=== PATIENT | female | born 1990 | race American Indian/Alaskan Native ===

== ENCOUNTER 2018-04-01 22:23 | Emergency (ER) | payer SELFPAY ==
[2018-04-01] MEDS ORDERED: Sodium Chloride 0.9% 1,000 ML IV STA (23:24)
[2018-04-01 23:46] LABS: BASO # 0.04 K/mm3 (0.0-2.0); BASO % 0.4 % (0.0-3.0); EOS # 0.1 (0.0-0.7); EOS % 1.4 % (1.5-5.0); GRAN # 6.35 (1.4-6.5); GRAN % 70.5 % (50.0-68.0); HEMOGLOBIN 12.9 g/dL (12.0-16.0); LYMPH % 21.8 % (22.0-35.0); MEAN CELL VOLUME 91.8 fl (80.0-105.0); MEAN CORPUSCULAR HEMOGLOBIN 32.1 pg (25.0-35.0); MEAN PLATELET VOLUME 10.6 fl (7.0-11.0); MONO # 0.5 (0.1-0.6); MONO % 5.9 % (1.0-6.0); RBC 4.02 10^6/uL (3.5-6.1); RED CELL DISTRIBUTION WIDTH 13.2 % (11.5-14.5)
[2018-04-01 23:53] LABS: URINE BILIRUBIN NEGATIVE (NEGATIVE); URINE BLOOD LARGE (NEGATIVE); URINE GLUCOSE (UA) NEGATIVE (NEGATIVE); URINE LEUKOCYTE ESTERASE NEGATIVE Leu/uL (NEGATIVE); URINE PROTEIN 100 mg/dL (<30 mg/dL); URINE UROBILINOGEN 0.2 E.U./dL (<1 E.U./dL)
[2018-04-01 23:55] LABS: URINE APPEARANCE BLOODY (CLEAR); URINE COLOR RED (YELLOW)
[2018-04-01 23:56] LABS: ALB/GLOB RATIO 1.5 (1.1-1.8); ALBUMIN 4.6 g/dL (3.0-4.8); CALCIUM 9.5 mg/dL (8.4-10.5); GFR AFRICAN-AMERICAN > 60; GFR NON-AFRICAN AMERICAN > 60; LIPASE 245 U/L (23-300); URINE RBC TNTC /hpf (0-2); URINE WBC NEGATIVE /hpf (0-6)
[2018-04-02 00:01] LABS: ALT/SGPT 24 U/L (7-56); AST/SGOT 30 U/L (14-36); BLOOD UREA NITROGEN 17 mg/dL (7-21)
[2018-04-02 00:06] LABS: URINE BACTERIA FEW (NEG)
[2018-04-02 00:17] VITALS: RESP 18
[2018-04-02] MEDS ORDERED: Morphine 2 mg/ml ISec IVP STA (01:16)
--- NOTE | 2018-04-02 01:27 | ED PDOC ---
Arrival/HPI - General Historian: Patient - History of Present Illness Time/Duration: Prior to Arrival Symptom Onset: Sudden Symptom Course: Worsening Quality: Cramping Severity Level: 10 <Vicenta Hendricks - Last Filed: 04/02/18 03:00> <Tommy Bee - Last Filed: 04/02/18 07:24> - General Chief Complaint: Female Genitourinary Time Seen by Provider: 04/01/18 22:48 - History of Present Illness Narrative History of Present Illness (Text): 04/02/18 01:24 28-year-old female presents today with a sudden onset of lower abdominal cramping and vaginal bleeding that started prior to arrival. Patient states that she has been having vaginal bleeding for the past 5 days and she thought it was just her period. Patient states today she developed severe lower abdominal pain which she describes as cramping/contractions. Patient states she noted heavy bleeding. Patient is unsure of her last period. Patient denies chest pain or shortness of breath she is complaining of nausea without vomiting. Denies any urinary symptoms. Complaining of low back pain she describes as an achy sensation. Patient rates the pain in the abdomen and back as a 10 out of 10. patient states she took aleve for pain without improvement. pt states she smokes marijuana and smoked it last this morning. (Vicenta Hendricks) Past Medical History - Provider Review Nursing Documentation Reviewed: Yes - Travel History Have you recently traveled outside [place] w/in the past 3 mons?: No - Tetanus Immunization Tetanus Immunization: Unknown <Vicenta Hendricks - Last Filed: 04/02/18 03:00> Family/Social History - Physician Review Nursing Documentation Reviewed: Yes Family/Social History: Unknown Family HX Smoking Status: Never Smoked Hx Alcohol Use: Yes Frequency of alcohol use: Socially Hx Substance Use: Yes (marijuana) <Vicenta Hendricks - Last Filed: 04/02/18 03:00> Allergies/Home Meds <Vicenta Hendricks - Last Filed: 04/02/18 03:00> <Tommy Bee - Last Filed: 04/02/18 07:24> Allergies/Adverse Reactions: Allergies No Known Allergies Allergy (Verified 04/01/18 23:23) Home Medications: Home Meds Medication Instructions Recorded Confirmed No Known Home Med 04/02/18 04/02/18 Review of Systems - Review of Systems Constitutional: absent: Fatigue, Fevers Respiratory: absent: SOB, Cough Cardiovascular: absent: Chest Pain, Palpitations Gastrointestinal: Abdominal Pain, Nausea. absent: Constipation, Vomiting Genitourinary Female: Vaginal Bleeding. absent: Dysuria, Frequency, Hematuria Musculoskeletal: Back Pain. absent: Arthralgias, Neck Pain Skin: absent: Rash, Pruritis Neurological: absent: Headache, Dizziness Psychiatric: absent: Anxiety, Depression <Vicenta Hendricks - Last Filed: 04/02/18 03:00> Physical Exam Vital Signs Reviewed: Yes Temperature: Afebrile Blood Pressure: Normal Pulse: Regular Respiratory Rate: Normal Appearance: Positive for: Well-Appearing, Non-Toxic, Uncomfortable Pain Distress: Mild Mental Status: Positive for: Alert and Oriented X 3 - Systems Exam Head: Present: Atraumatic Mouth: Present: Moist Mucous Membranes Neck: Present: Normal Range of Motion Respiratory/Chest: Present: Clear to Auscultation, Good Air Exchange. No: Respiratory Distress, Accessory Muscle Use Cardiovascular: Present: Regular Rate and Rhythm Abdomen: Present: Tenderness (minimal lower abd tenderness). No: Distention, Peritoneal Signs, Rebound, Guarding Back: Present: Normal Inspection. No: CVA Tenderness, Midline Tenderness, Paraspinal Tenderness Upper Extremity: Present: Normal Inspection, Normal ROM Lower Extremity: Present: Normal ROM Neurological: Present: GCS=15, Speech Normal Skin: Present: Warm, Dry, Normal Color. No: Rashes Psychiatric: Present: Alert, Oriented x 3 <Vicenta Hendricks - Last Filed: 04/02/18 03:00> Vital Signs Temp Pulse Resp BP Pulse Ox 04/02/18 07:08 60 18 114/61 100 04/02/18 04:32 60 18 115/79 100 04/02/18 03:16 62 18 126/48 L 100 04/02/18 01:46 56 L 18 123/73 100 04/02/18 00:16 60 18 133/75 100 04/01/18 23:18 97.9 F 58 L 20 133/75 100 Medical Decision Making <Vicenta Hendricks - Last Filed: 04/02/18 03:00> <Tommy Bee - Last Filed: 04/02/18 07:24> ED Course and Treatment: 04/02/18 01:28 Patient is nontoxic well appearing . c/o severe lower abdominal cramping. vital signs are stable. CBC: wnl CMP: wnl Beta hC TYPE AND SCREEN: A+ Urinalysis: + blood Ultrasound: FINDINGS: There is a gestational sac within the cervical canal. The mean sac diameter measures 2.2 cm, corresponding to a gestational age of 6 weeks 5 days. No normal-appearing yolk sac or pole is identified. Within the uterine body and fundus, the endometrium is thickened up to 1.5 cm. The right ovary measures 2.3 x 1.9 x 2.1 cm without focal lesion. The left ovary measures 2.3 x 2.4 x 2.4 cm and contains a 1.5 cm echogenic focus. Both ovaries demonstrate internal vascularity. No free fluid in the cul-de-sac. IMPRESSION: 6 weeks 5 days gestational sac within the cervical canal without normal- appearing yolk sac or pole. CUFF MAKER surgical evaluation recommended. Suspected 1.5 cm left ovarian dermoid without torsion or free fluid vaginal examination performed after US result; + bleeding noted; products of conception noted at cervical os. chaparoned by CUTTER APPRENTICE HANDNINA Rivero. Discussed all the results the patient. 04/02/18 02:22 case discussed in depth with dr. godoy; he does not want patient to be transferred; he states given patient a percocet; wait four hours repeat hgb and repeat the US in 4 hours. 04/02/18 03:00 case signed out to dr. bee pending re-evaluation and disposition. (Vicenta Hendricks) 04/02/18 07:10 Case endorsed to /pending CBC/repeat transvaginal U/S/reassess/final disposition (Tommy Bee) - Lab Interpretations Lab Results: 04/02/18 06:30 04/01/18 23:15 Lab Results 04/02/18 06:30: WBC 8.9, RBC 3.55, Hgb 11.3 L, Hct 32.2 L, MCV 90.7, MCH 31.8, MCHC 35.1, RDW 12.9, Plt Count 184, MPV 9.6 04/02/18 02:14: Blood Type Confirm A POSITIVE 04/02/18 01:07: Blood Type A POSITIVE, Antibody Screen Negative, BBK History Checked No verified bt 04/01/18 23:15: WBC 9.0, RBC 4.02, Hgb 12.9, Hct 36.9, MCV 91.8, MCH 32.1, MCHC 35.0, RDW 13.2, Plt Count 245, MPV 10.6, Gran % 70.5 H, Lymph % (Auto) 21.8 L, [place] % (Auto) 5.9, Eos % (Auto) 1.4 L, Baso % (Auto) 0.4, Gran # 6.35, Lymph # ( Auto) 2.0, [place] # (Auto) 0.5, Eos # (Auto) 0.1, Baso # (Auto) 0.04 04/01/18 23:15: Beta HCG, Quant 696.96 H 04/01/18 23:15: Sodium 142, Potassium 3.8, Chloride 102, Carbon Dioxide 26, Anion Gap 18, BUN 17, Creatinine 0.6 L, Est GFR ( Amer) > 60, Est GFR ( Non-Af Amer) > 60, Random Glucose 125 H, Calcium 9.5, Total Bilirubin 0.5, AST 30, ALT 24, Alkaline Phosphatase 45, Total Protein 7.6, Albumin 4.6, Globulin 3.0, Albumin/Globulin Ratio 1.5, Lipase 245 04/01/18 23:15: Urine Color Red, Urine Appearance Bloody, Urine pH 6.0, Ur Specific [place] 1.025, Urine Protein 100 H, Urine Glucose (UA) Negative, Urine Ketones 40 H, Urine Blood Large H, Urine Nitrate Negative, Urine Bilirubin Negative, Urine Urobilinogen 0.2, Ur Leukocyte Esterase Negative, Urine RBC Tntc , Urine WBC Negative, Ur Epithelial Cells 4 - 5, Urine Bacteria Few, Urine Other Mucus - RAD Interpretation Radiology Orders: 04/01/18 23:24 OB TRANSVAGINAL [US] Stat 04/02/18 05:26 TRANSVAGINAL [US] Stat - Medication Orders Current Medication Orders: Discontinued Medications Acetaminophen (Tylenol 325mg Tab) 975 mg PO STAT STA Stop: 04/01/18 23:25 Last Admin: 04/01/18 23:33 Dose: 975 mg MAR Pain/Vitals Document 06/26/18 23:33 RG (Rec: 04/01/18 23:33 RG [id number]) Pain Reassessment Is This A Pain ReAssessment? Yes Sleep Is patient sleeping during reassessment? No Presence of Pain Presence of Pain Yes Pain Scale Used Pain Scale Used Numeric Location Pain Location Body Site Abdomen Famotidine (Pepcid) 20 mg IVP STAT STA Stop: 04/01/18 23:39 Last Admin: 04/02/18 00:09 Dose: 20 mg IVP Administration Document 04/02/18 00:09 RG (Rec: 04/02/18 00:09 RG [id number]) Charges for Administration # of IVP Administrations 1 Sodium Chloride (Sodium Chloride 0.9%) 1,000 mls @ 999 mls/hr IV .Q1H1M STA Stop: 04/02/18 00:24 Last Admin: 04/01/18 23:35 Dose: 999 mls/hr eMAR Start Stop Document 04/01/18 23:35 RG (Rec: 04/01/18 23:[id number]) Intravenous Solution Start Date 04/01/18 Start Time 23:35 Metoclopramide HCl (Reglan) 10 mg IVP STAT STA Stop: 04/01/18 23:39 Last Admin: 04/02/18 00:08 Dose: 10 mg IVP Administration Document 04/02/18 00:08 RG (Rec: 04/02/18 00:[id number]) Charges for Administration # of IVP Administrations 1 Morphine Sulfate (Morphine) 2 mg IVP STAT STA Stop: 04/02/18 01:17 Last Admin: 04/02/18 01:34 Dose: 2 mg MAR Pain Assessment Document 04/02/18 01:34 RG (Rec: 04/02/18 01:39 [place] [id number]) Pain Reassessment Is this a pain reassessment? Yes Sleep Is patient sleeping during reassessment? No Location Upper or Lower Lower Pain Location Body Site Abdomen Description Description Cramping Pain Behavior Crying Irritability IVP Administration Document 04/02/18 01:34 RG (Rec: 04/02/18 01:[id number]) Charges for Administration # of IVP Administrations 1 Disposition/Present on Arrival - Present on Arrival Any Indicators Present on Arrival: No History of DVT/PE: No History of Uncontrolled Diabetes: No Urinary Catheter: No History of Decub. Ulcer: No History Surgical Site Infection Following: None <Vicenta Hendricks - Last Filed: 04/02/18 03:00> - Present on Arrival Any Indicators Present on Arrival: No - Disposition Have Diagnosis and Disposition been Completed?: No Disposition Time: 07:00 <Tommy Bee - Last Filed: 04/02/18 07:24> - Disposition Diagnosis: Incomplete Condition: STABLE Referrals: FAMILY PROVIDER,NO [Primary Care Provider] - Follow up with primary Forms: [employer] (Romanian)
[2018-04-02 04:33] VITALS: PULSE 60
[2018-04-02 06:47] LABS: HEMOGLOBIN 11.3 g/dL (12.0-16.0); MEAN CELL VOLUME 90.7 fl (80.0-105.0); MEAN CORPUSCULAR HEMOGLOBIN 31.8 pg (25.0-35.0); MEAN CORPUSCULAR HGB CONC 35.1 g/dl (31.0-37.0); MEAN PLATELET VOLUME 9.6 fl (7.0-11.0); RBC 3.55 10^6/uL (3.5-6.1); RED CELL DISTRIBUTION WIDTH 12.9 % (11.5-14.5); WHITE BLOOD COUNT 8.9 10^3/ul (4.5-11.0)
--- NOTE | 2018-04-02 07:48 | ED PDOC ---
Physical Exam Vital Signs Reviewed: Yes Vital Signs Temp Pulse Resp BP Pulse Ox 04/02/18 07:08 60 18 114/61 100 04/02/18 04:32 60 18 115/79 100 04/02/18 03:16 62 18 126/48 L 100 04/02/18 01:46 56 L 18 123/73 100 04/02/18 00:16 60 18 133/75 100 04/01/18 23:18 97.9 F 58 L 20 133/75 100 Temperature: Afebrile Blood Pressure: Normal Pulse: Regular Respiratory Rate: Normal Appearance: Positive for: Well-Appearing, Non-Toxic, Comfortable Pain Distress: None Mental Status: Positive for: Alert and Oriented X 3 - Systems Exam Head: Present: Atraumatic, Normocephalic Pupils: Present: PERRL Extroacular Muscles: Present: EOMI Conjunctiva: Present: Normal Mouth: Present: Moist Mucous Membranes Neck: Present: Normal Range of Motion Respiratory/Chest: Present: Clear to Auscultation, Good Air Exchange. No: Respiratory Distress, Accessory Muscle Use Cardiovascular: Present: Regular Rate and Rhythm, Normal S1, S2. No: Murmurs Abdomen: No: Tenderness, Distention, Peritoneal Signs Back: Present: Normal Inspection Upper Extremity: Present: Normal Inspection. No: Cyanosis, Edema Lower Extremity: Present: Normal Inspection. No: Edema Neurological: Present: GCS=15, CN II-XII Intact, Speech Normal Skin: Present: Warm, Dry, Normal Color. No: Rashes Psychiatric: Present: Alert, Oriented x 3, Normal Insight, Normal Concentration Medical Decision Making ED Course and Treatment: 04/02/18 07:47 Patient endorsed to me by . pending ultrasound. Reevaluate and dispo. 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 Dr. Zepeda recommended Misoprostol 200mcg x4 per vaginal q12 x1day. And to follow up in his office in 1-2 days. 04/02/18 08:42 On reevaluation patient feels better and no longer has abdominal pain and is tolerating PO fluids. Explained in detail to patient her results and she will follow up with or her CHANGE COORDINATOR in [place]. She repeated follow up instructions to me and was given amble time to ask questions. - Lab Interpretations Lab Results: 04/02/18 06:30 04/01/18 23:15 Lab Results 04/02/18 06:30: WBC 8.9, RBC 3.55, Hgb 11.3 L, Hct 32.2 L, MCV 90.7, MCH 31.8, MCHC 35.1, RDW 12.9, Plt Count 184, MPV 9.6 04/02/18 02:14: Blood Type Confirm A POSITIVE 04/02/18 01:07: Blood Type A POSITIVE, Antibody Screen Negative, BBK History Checked No verified bt 04/01/18 23:15: WBC 9.0, RBC 4.02, Hgb 12.9, Hct 36.9, MCV 91.8, MCH 32.1, MCHC 35.0, RDW 13.2, Plt Count 245, MPV 10.6, Gran % 70.5 H, Lymph % (Auto) 21.8 L, [place] % (Auto) 5.9, Eos % (Auto) 1.4 L, Baso % (Auto) 0.4, Gran # 6.35, Lymph # ( Auto) 2.0, [place] # (Auto) 0.5, Eos # (Auto) 0.1, Baso # (Auto) 0.04 04/01/18 23:15: Beta HCG, Quant 696.96 H 04/01/18 23:15: Sodium 142, Potassium 3.8, Chloride 102, Carbon Dioxide 26, Anion Gap 18, BUN 17, Creatinine 0.6 L, Est GFR ( Amer) > 60, Est GFR ( Non-Af Amer) > 60, Random Glucose 125 H, Calcium 9.5, Total Bilirubin 0.5, AST 30, ALT 24, Alkaline Phosphatase 45, Total Protein 7.6, Albumin 4.6, Globulin 3.0, Albumin/Globulin Ratio 1.5, Lipase 245 04/01/18 23:15: Urine Color Red, Urine Appearance Bloody, Urine pH 6.0, Ur Specific [place] 1.025, Urine Protein 100 H, Urine Glucose (UA) Negative, Urine Ketones 40 H, Urine Blood Large H, Urine Nitrate Negative, Urine Bilirubin Negative, Urine Urobilinogen 0.2, Ur Leukocyte Esterase Negative, Urine RBC Tntc , Urine WBC Negative, Ur Epithelial Cells 4 - 5, Urine Bacteria Few, Urine Other Mucus - RAD Interpretation Radiology Orders: 04/01/18 23:24 OB TRANSVAGINAL [US] Stat 04/02/18 05:26 TRANSVAGINAL [US] Stat - Medication Orders Current Medication Orders: Discontinued Medications Acetaminophen (Tylenol 325mg Tab) 975 mg PO STAT STA Stop: 04/01/18 23:25 Last Admin: 04/01/18 23:33 Dose: 975 mg MAR Pain/Vitals Document 04/01/18 23:33 RG (Rec: 04/01/18 23:33 [id number] Pain Reassessment Is This A Pain ReAssessment? Yes Sleep Is patient sleeping during reassessment? No Presence of Pain Presence of Pain Yes Pain Scale Used Pain Scale Used Numeric Location Pain Location Body Site Abdomen Famotidine (Pepcid) 20 mg IVP STAT STA Stop: 04/01/18 23:39 Last Admin: 04/02/18 00:09 Dose: 20 mg IVP Administration Document 04/02/18 00:09 RG (Rec: 04/02/18 00:09 [id number]) Charges for Administration # of IVP Administrations 1 Sodium Chloride (Sodium Chloride 0.9%) 1,000 mls @ 999 mls/hr IV .Q1H1M STA Stop: 04/02/18 00:24 Last Admin: 04/01/18 23:35 Dose: 999 mls/hr eMAR Start Stop Document 04/01/18 23:35 RG (Rec: 04/01/18 23:42 [id number]) Intravenous Solution Start Date 04/01/18 Start Time 23:35 Metoclopramide HCl (Reglan) 10 mg IVP STAT STA Stop: 04/01/18 23:39 Last Admin: 04/02/18 00:08 Dose: 10 mg IVP Administration Document 04/02/18 00:08 RG (Rec: 04/02/18 00:08 [id number]) Charges for Administration # of IVP Administrations 1 Morphine Sulfate (Morphine) 2 mg IVP STAT STA Stop: 04/02/18 01:17 Last Admin: 04/02/18 01:34 Dose: 2 mg MAR Pain Assessment Document 04/02/18 01:34 RG (Rec: 04/02/18 01:39 RG [id number]) Pain Reassessment Is this a pain reassessment? Yes Sleep Is patient sleeping during reassessment? No Location Upper or Lower Lower Pain Location Body Site Abdomen Description Description Cramping Pain Behavior Crying Irritability IVP Administration Document 04/02/18 01:34 RG (Rec: 04/02/18 01:39 RG [id number]) Charges for Administration # of IVP Administrations 1 - Scribe Statement The provider has reviewed the documentation as recorded by the Scribe Grgeorio Jamil Provider Scribe Attestation: All medical record entries made by the Scribe were at my direction and personally dictated by me. I have reviewed the chart and agree that the record accurately reflects my personal performance of the history, physical exam, medical decision making, and the department course for this patient. I have also personally directed, reviewed, and agree with the discharge instructions and disposition. Disposition/Present on Arrival - Present on Arrival Any Indicators Present on Arrival: No History of DVT/PE: No History of Uncontrolled Diabetes: No Urinary Catheter: No History of Decub. Ulcer: No History Surgical Site Infection Following: None - Disposition Have Diagnosis and Disposition been Completed?: Yes Diagnosis: Incomplete Disposition: HOME/ ROUTINE Disposition Time: 08:48 Patient Plan: Discharge Condition: STABLE Discharge Instructions (ExitCare): Miscarriage Additional Instructions: KARLOS GORMAN, thank you for letting us take care of you today. Your provider was Cresencio Brady DO and you were treated for Incomplete . The emergency medical care you received today was directed at your acute symptoms. If you were prescribed any medication, please fill it and take as directed. It may take several days for your symptoms to resolve. Return to the Emergency Department if your symptoms worsen, do not improve, or if you have any other problems. Make sure to follow up with OBGYN Dr. Zepeda in 1-2days or if you prefer you OBGYN as you mention [facility]. Return if you symptoms worsen or any concern please. Please contact your doctor or call one of the physicians/clinics you have been referred to that are listed on the Patient Visit Information form that is included in your discharge packet. Bring any paperwork you were given at discharge with you along with any medications you are taking to your follow up visit. Our treatment cannot replace ongoing medical care by a primary care provider outside of the emergency department. Thank you for allowing the [facility] team to be part of your care today. If you had an X-Ray or CT scan: A Radiologist will review the ED reading if any change in treatment is needed we will contact you. If you had a blood, urine, or wound culture: It will take several days for the results, if any change in treatment is needed we will contact you. If you had an STI test: It will take 48 hours for the results. Please call after 1 week if you have not heard back. Prescriptions: Misoprostol 200 mcg PV Q12 1 Days #8 tablet Referrals: Raffi Zepeda MD [Non-Staff] - Follow up with primary FAMILY PROVIDER,NO [Primary Care Provider] - Follow up with primary Forms: [employer] (Estonian), WORK NOTE
--- NOTE | 2018-04-02 07:48 | US ---
EXAM: US , Transvaginal CLINICAL HISTORY: 28 years old, female; Pain; Pelvic pain TECHNIQUE: Real-time transvaginal obstetrical ultrasound of the maternal pelvis and a first trimester with image documentation. Transvaginal imaging was used for better evaluation of the fetus and adnexa. COMPARISON: US - OB TRANSVAGINAL 2018-04-02 00:19 FINDINGS: Gestation: Examination again demonstrates a gestational sac within the cervical canal without pole or yolk sac. The gestational sac measures 2.2 cm corresponding to 6 weeks and 5 days. MARRIAGE AND FAMILY TEACHER consultation is recommended. Uterus/cervix: The uterus is anteverted and measures 10.2 x 5.3 x 7.3 cm in dimensions.. No myometrial mass. Ovaries: The right ovary measures 3.6 x 2 .6 x 3.4 cm in dimensions. The left ovary measures 3.0 x 2.0 x 2.7 cm. Normal arterial and venous flow is noted bilaterally and there is no evidence for torsion. Echogenic well-defined dermoid cysts are noted bilaterally measuring 2.3 cm on the right and 1.4 cm on the left. Free fluid: No free fluid. IMPRESSION: Examination again demonstrates a gestational sac within the cervical canal without pole or yolk sac. The gestational sac measures 2.2 cm corresponding to 6 weeks and 5 days. MARRIAGE AND FAMILY TEACHER consultation is recommended. The right ovary measures 3.6 x 2 .6 x 3.4 cm in dimensions. The left ovary measures 3.0 x 2.0 x 2.7 cm. Normal arterial and venous flow is noted bilaterally and there is no evidence for torsion. Echogenic well-defined dermoid cysts are noted bilaterally measuring 2.3 cm on the right and 1.4 cm on the left.
[2018-04-02 09:09] VITALS: BP 102/52; TEMP 98.2; O2SAT 98
--- NOTE | 2018-04-02 15:35 | US ---
HISTORY: pain/bleeding COMPARISON: None available. TECHNIQUE: Transvaginal obstetric ultrasonography was performed with longitudinal and transverse projections submitted for interpretation. Doppler techniques were also applied. FINDINGS: UTERUS: The uterus is anteverted measuring a 9.0 x 5.6 x 6.2 cm. The uterus is accordingly enlarged. No fibroid or other mass lesion seen. ENDOMETRIUM: The endometrium measures 15.0 mm and is grossly nonfocal. Unremarkable. CERVIX: A cervical ectopic gestation is identified with a mean sac diameter of 2.2 cm corresponding to 6 weeks 5 days a average ultrasound age. No yolk sac or pole is visible this time. No is identified within the endometrial cavity. The cervix is otherwise unremarkable. RIGHT OVARY: Measures 2.3 x 1.9 x 2.1 cm. No solid mass. Normal flow. LEFT OVARY: Measures 2.3 x 2.1 x 2.4 cm. An echogenic structures identified within the left ovary measure 1.2 x 1.5 x 1.3 cm suspicious for dermoid mass though acute hemorrhagic cysts is a possibility as well as other lesions. Clinically correlate further. Normal flow. FREE FLUID: No significant free fluid noted. OTHER FINDINGS: None. IMPRESSION: Findings highly suggestive of a cervical ectopic gestation though this could represent failure of gestation. No yolk sacs identified or pole within this gestation sac and clinical correlation and sonographic follow-up are advised. Stat obstetric consultation is advised. Concordant preliminary report from [facility], 04/02/2018.
== END 2018-04-02 09:08 | disposition home or self-care (01) ==
LOC: ED 22:23
DX: O03.4 Incomplete spontaneous abortion without complication (principal); Z3A.01 Less than 8 weeks gestation of pregnancy
CPT/HCPCS: 76817; 76830; 80053; 81001; 83690; 84702; 85025; 85027; 86850; 86900; 87086; 96374; 96375; 99285; J2270; J2765; J7030